=== PATIENT | female | born 1965 | race Caucasian/White ===

== ENCOUNTER 2019-05-19 20:17 | Emergency (ER) | payer OTHER ==
[2019-05-19 21:02] LABS: ABS Lymphocytes 1.9 10^3/ul (1.0-4.8); ABS Monocytes 0.5 10^3/ul (0-0.8); Eosinophil % 0.8 %; Hematocrit 40 % (35-47); Hemoglobin 13.6 g/dL (12.0-16.0); Lymphocyte % 34.6 %; Mean Corpuscular HGB Conc 34 g/dL (31-36); Mean Corpuscular Hemoglobin 30 pg (27-31); Mean Corpuscular Volume 89 fL (80-97); Mean Platelet Volume 6.9 fL (7.4-10.4); Platelet Count 255 10^3/uL (150-450); Red Blood Count 4.54 10^6 /uL (3.70-4.87); Red Cell Distribution Width 13 % (10-15); White Blood Count 5.4 10^3/uL (3.5-10.8)
[2019-05-19 21:18] LABS: Albumin 4.3 g/dL (3.2-5.2); Albumin/Globulin Ratio 1.5 (1-3); BUN/Creatinine Ratio 12.9 (8-20); C Reactive Protein 21.08 mg/L (<8.01); Calcium 8.7 mg/dL (8.6-10.3); EGFR African American 105.5 (>60); EGFR Non-African American 87.2 (>60); Globulin 2.8 g/dL (2-4); Potassium 3.7 mmol/L (3.5-5.0); Total Bilirubin 0.8 mg/dL (0.2-1.0); Total Protein 7.1 g/dL (6.4-8.9)
[2019-05-19 21:24] LABS: HCG Pregnancy 1.78 mIU/mL
--- NOTE | 2019-05-19 22:10 | ED ---
Abdominal Pain/Female - HPI Summary HPI Summary: Patient is a 53 y/o F presenting to ED with complaints of abdominal pain, N/V/ D. She additionally endorses difficulty digesting food, fatigue, dizziness and feeling gaseous. 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 Patient states that she had Sx onset while in [place]. She states that her pain is located at upper abdomen/lower chest. Patient had onset of diarrhea this morning, 05/19/2019, which had resolved at 1700 05/19/2019. She reports Hx of ulcers, but states that present Sx are dissimilar to her ulcer presentation. She notes that her most recent endoscopy was normal. Patient states that she had not previously had an ABD/PEL CT. She denies past abdominal surgery and past OBGYN issues. She states that she is typically active and notes that Sx are not aggravated by exertion. She notes that she was evaluated by a physician in [place] and was prescribed pantoprazole, which has provided some relief in Sx. Patient denies tobacco, alcohol and substance usage. On triage, pain is rated 7/10. Home medications and allergies are reviewed. - History of Current Complaint Chief Complaint: EDAbdPain Stated Complaint: STOMACH ACHE,HEART BURN PER PT Time Seen by Provider: 05/19/19 21:55 Hx Obtained From: Patient Onset/Duration: Lasting Hours - diarrhea, Lasting Weeks, Still Present Timing: Weeks Severity Currently: Severe Pain Intensity: 7 Pain Scale Used: 0-10 Numeric Location: Epigastric Alleviating Factor(s): Medications - pantoprazole Associated Signs and Symptoms: Positive: Chest Pain - upper abdomen/lower chest , Dizzy, Nausea, Vomiting, Diarrhea, Other: - gaseous, fatigued, difficulty digesting food Allergies/Adverse Reactions: Allergies Allergy/AdvReac Type Severity Reaction Status Date / Time No Known Allergies Allergy Verified 10/24/18 17:41 Home Medications: Home Medications NK [No Home Medications Reported] 05/20/19 [History Confirmed 05/20/19] PMH/Surg Hx/FS Hx/Imm Hx Endocrine/Hematology History: Denies: Hx Bone Marrow Disease, Hx Diabetes Cardiovascular History: Reports: Hx Angina, Hx Hypercholesterolemia Denies: Hx Congestive Heart Failure, Hx Hypertension, Hx Pacemaker/ICD Respiratory History: Denies: Hx Asthma, Hx Chronic Obstructive Pulmonary Disease (COPD) GI History: Reports: Hx Ulcer History: Reports: Hx Kidney Infection - 16 yrs. 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 Infectious Disease History: No Infectious Disease History: Reports: Traveled Outside the [place] in Last 30 Days - [place] - Family History Known Family History: Positive: Other - colon CA - Social History Alcohol Use: None Substance Use Type: Reports: None Smoking Status (MU): Never Smoked Tobacco Have You Smoked in the Last Year: No Review of Systems Positive: Fatigue Gastrointestinal: Other - gaseous, difficulty digesting food Positive: Abdominal Pain - upper abdomen/lower chest, Vomiting, Diarrhea, Nausea Neurological: Other - positive - dizziness All Other Systems Reviewed And Are Negative: Yes Physical Exam - Summary Physical Exam Summary: Appearance: Well-appearing, Well-nourished, lying in bed comfortably Skin: Warm, dry, no obvious rash Eyes: sclera anicteric, no conjunctival pallor ENT: mucous membranes moist, pharynx appears normal Neck: Supple, nontender Respiratory: Clear to auscultation, no signs of respiratory distress Cardiovascular: Normal S1, S2. No murmurs. Normal distal pulses in tibial and radial bilaterally. Abdomen: Soft, nontender, normal active bowel sounds present Musculoskeletal: Normal, Strength/ROM Intact Neurological: A&Ox3, awake and alert, mentation is normal, speech is fluent and appropriate Psychiatric: affect is normal, does not appear anxious or depressed Triage Information Reviewed: Yes Vital Signs On Initial Exam: Initial Vitals Temp Pulse Resp BP Pulse Ox 98.7 F 70 18 115/70 97 05/19/19 20:22 05/19/19 20:22 05/19/19 20:22 05/19/19 20:22 05/19/19 20:22 Vital Signs Reviewed: Yes Diagnostics - Vital Signs Vital Signs Temp Pulse Resp BP Pulse Ox 05/19/19 20:22 98.7 F 70 18 115/70 97 - Laboratory Lab Results: Lab Results 05/19/19 05/19/19 05/19/19 Range/Units 20:49 20:49 20:49 WBC 5.4 (3.5-10.8) 10^3/uL RBC 4.54 (3.70-4.87) 10^6 /uL Hgb 13.6 (12.0-16.0) g/dL Hct 40 (35-47) % MCV 89 (80-97) fL MCH 30 (27-31) pg MCHC 34 (31-36) g/dL RDW 13 (10-15) % Plt Count 255 (150-450) 10^3/uL MPV 6.9 L (7.4-10.4) fL Neut % (Auto) 55.8 % Lymph % (Auto) 34.6 % [place] % (Auto) 8.4 % Eos % (Auto) 0.8 % Baso % (Auto) 0.4 % Absolute Neuts (auto) 3.0 (1.5-7.7) 10^3/ul Absolute Lymphs (auto) 1.9 (1.0-4.8) 10^3/ul Absolute Monos (auto) 0.5 (0-0.8) 10^3/ul Absolute Eos (auto) 0.0 (0-0.6) 10^3/ul Absolute Basos (auto) 0.0 (0-0.2) 10^3/ul Absolute Nucleated RBC 0.0 10^3/ul Nucleated RBC % 0.0 Sodium 136 (135-145) mmol/L Potassium 3.7 (3.5-5.0) mmol/L Chloride 106 (101-111) mmol/L Carbon Dioxide 23 (22-32) mmol/L Anion Gap 7 (2-11) mmol/L BUN 9 (6-24) mg/dL Creatinine 0.70 (0.51-0.95) mg/dL Est GFR ( Amer) 105.5 (>60) Est GFR (Non-Af Amer) 87.2 (>60) BUN/Creatinine Ratio 12.9 (8-20) Glucose 105 H (70-100) mg/dL Lactic Acid 0.5 (0.5-2.0) mmol/L Calcium 8.7 (8.6-10.3) mg/dL Total Bilirubin 0.80 (0.2-1.0) mg/dL AST 18 (13-39) U/L ALT 11 (7-52) U/L Alkaline Phosphatase 65 (34-104) U/L Ammonia (16-53) mcmol/L C-Reactive Protein 21.08 H (<8.01) mg/L Total Protein 7.1 (6.4-8.9) g/dL Albumin 4.3 (3.2-5.2) g/dL Globulin 2.8 (2-4) g/dL Albumin/Globulin Ratio 1.5 (1-3) Lipase 22 (11.0-82.0) U/L Beta HCG, Quant 1.78 mIU/mL 05/19/19 Range/Units 20:51 WBC (3.5-10.8) 10^3/uL RBC (3.70-4.87) 10^6 /uL Hgb (12.0-16.0) g/dL Hct (35-47) % MCV (80-97) fL MCH (27-31) pg MCHC (31-36) g/dL RDW (10-15) % Plt Count (150-450) 10^3/uL MPV (7.4-10.4) fL Neut % (Auto) % Lymph % (Auto) % [place] % (Auto) % Eos % (Auto) % Baso % (Auto) % Absolute Neuts (auto) (1.5-7.7) 10^3/ul Absolute Lymphs (auto) (1.0-4.8) 10^3/ul Absolute Monos (auto) (0-0.8) 10^3/ul Absolute Eos (auto) (0-0.6) 10^3/ul Absolute Basos (auto) (0-0.2) 10^3/ul Absolute Nucleated RBC 10^3/ul Nucleated RBC % Sodium (135-145) mmol/L Potassium (3.5-5.0) mmol/L Chloride (101-111) mmol/L Carbon Dioxide (22-32) mmol/L Anion Gap (2-11) mmol/L BUN (6-24) mg/dL Creatinine (0.51-0.95) mg/dL Est GFR ( Amer) (>60) Est GFR (Non-Af Amer) (>60) BUN/Creatinine Ratio (8-20) Glucose (70-100) mg/dL Lactic Acid (0.5-2.0) mmol/L Calcium (8.6-10.3) mg/dL Total Bilirubin (0.2-1.0) mg/dL AST (13-39) U/L ALT (7-52) U/L Alkaline Phosphatase (34-104) U/L Ammonia 39 (16-53) mcmol/L C-Reactive Protein (<8.01) mg/L Total Protein (6.4-8.9) g/dL Albumin (3.2-5.2) g/dL Globulin (2-4) g/dL Albumin/Globulin Ratio (1-3) Lipase (11.0-82.0) U/L Beta HCG, Quant mIU/mL Result Diagrams: 05/19/19 20:49 05/19/19 20:49 Lab Statement: Any lab studies that have been ordered have been reviewed, and results considered in the medical decision making process. - CT ABD/PEL CT CT Interpretation Completed By: Radiologist Summary of CT Findings: IMPRESSION: No acute CT pathology. THIS REPORT WAS REVIEWED BY DR. VALDEZ Re-Evaluation - Re-Evaluation First Eval Re-Evaluation Time: 01:34 Comment: Results of labs and tests were discussed with the patient. Patient was discharged to home and was advised to follow up with GI doctor. She is agreeable with this plan. Abdominal Pain Fem Course/Dx - Course Course Of Treatment: Patient is a 53 y/o F presenting to ED with complaints of abdominal pain, N/V/D. She additionally endorses difficulty digesting food, fatigue, dizziness and feeling gaseous. 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 Patient states that she had Sx onset while in [place]. She states that her pain is located at upper abdomen/lower chest. Patient had onset of diarrhea this morning, 05/19/2019, which had resolved at 1700 05/19/2019. She reports Hx of ulcers, but states that present Sx are dissimilar to her ulcer presentation. She notes that her most recent endoscopy was normal. Patient states that she had not previously had an ABD/PEL CT. She denies past abdominal surgery and past OBGYN issues. Physical exam is unremarkable. Bloodwork was obtained, abnormal labs included MPV 6.9, glucose 105, CRP 21.08. AST 18, ALT 11, alk phos 65, ammonia 39, lipase 22, beta HCG 1.78. UA showed cloudy urine. CT ABD/ PEL IMPRESSION: No acute CT pathology. Results of labs and tests were discussed with the patient. Patient was discharged to home and was advised to follow up with GI doctor. She is agreeable with this plan. - Diagnoses Provider Diagnoses: Abdominal pain, Peptic ulcer disease Discharge ED - Sign-Out/Discharge Documenting (check all that apply): Patient Departure - discharge Patient Received Moderate/Deep Sedation with Procedure: No - Discharge Plan Condition: Good Disposition: HOME Patient Education Materials: Peptic Ulcer (ED), Acute Abdominal Pain (ED) Referrals: Holden Norris DO [Doctor of Osteopathy] - Additional Instructions: Contact your hat marker's office in the morning to arrange an appt with them, ideally this week. The blood work and CT scan we did today did not show any significant abnormalities, but ulcer disease may not necessarily show up on these tests. You may end up needing another endoscopy to make a diagnosis. In the meantime keep to a bland diet and try to stay hydrated, continue the acid nickolas medication prescribed in [place], and make sure to keep hydrated. - Billing Disposition and Condition Condition: GOOD Disposition: Home - Attestation Statements Document Initiated by Miryam: Yes Documenting Scribe: JUNITO CLAY Provider For Whom Miryam is Documenting (Include Credential): DAMION VALDEZ MD Scribe Attestation: IJUNITO, scribed for DAMION VALDEZ MD on 05/21/19 at 0520. Scribe Documentation Reviewed: Yes Provider Attestation: The documentation as recorded by the JUNITO mack accurately reflects the service I personally performed and the decisions made by me, DAMION VALDEZ MD Status of Scribe Document: Viewed
[2019-05-19 23:10] LABS: Urine Appearance Cloudy; Urine Bilirubin Negative (Negative); Urine Blood Negative (Negative); Urine Color Yellow; Urine Glucose Negative (Negative); Urine Ketones Negative (Negative); Urine Nitrite Negative (Negative); Urine Protein Negative (Negative); Urine Specific Gravity 1.008 (1.010-1.030); Urine Urobilinogen Negative (Negative)
[2019-05-20] MEDS ORDERED: Iohexol 300* (CONTRAST) 10 ML SDV IV ONE (00:05)
[2019-05-20 02:13] VITALS: BP 103/56
== END 2019-05-20 02:11 | disposition home or self-care (01) ==
LOC: ED 20:17
DX: K27.9 Peptic ulcer, site unspecified, unspecified as acute or chronic, without hemorrhage or perforation (principal); E78.00 Pure hypercholesterolemia, unspecified
CPT/HCPCS: 36415; 74177; 80053; 81003; 82140; 83605; 83690; 84484; 84702; 85025; 86140; 87040; 99283; Q9967